=== PATIENT | male | born 1980 | race Caucasian/White ===

== ENCOUNTER → 2017-08-28 16:03 | Outpatient (CLI) | payer BC, SELFPAY ==
--- NOTE | 2017-08-28 16:10 | RAD_ITS ---
STUDY: X-RAY - LEFT SHOULDER REASON FOR EXAM: Male, 37 years old. Pain. TECHNIQUE: 4 view(s) of the shoulder. COMPARISON: None. FINDINGS: There is no evidence of fracture or dislocation. There are mild degenerative changes in the acromioclavicular joint. There are no radiodense foreign bodies. RAD/Shoulder min 2 Views IMPRESSION: No fracture or dislocation. Mild degenerative changes in the acromioclavicular joint. Electronically Signed: Charles Canales, at 20:56 EDT Tel , Service support ,
== END ==
PROVIDERS: Family Provider Family Medicine; PCP Family Medicine; Visit Provider Family Medicine
DX: M25.512 Pain in left shoulder (principal)
CPT/HCPCS: 73030

== ENCOUNTER → 2017-10-09 16:58 | Outpatient (CLI) | payer BC, SELFPAY | PROVIDERS: Family Provider Family Medicine; PCP Family Medicine; Visit Provider Family Medicine | DX: M25.512 Pain in left shoulder (principal); M75.102 Unspecified rotator cuff tear or rupture of left shoulder, not specified as traumatic | CPT/HCPCS: 73221 ==

== ENCOUNTER 2018-05-17 19:37 | Emergency (ER) | payer BC, SELFPAY ==
[2018-05-17 19:38] VITALS: BP 145/95; PULSE 83; PULSE 89; RESP 17; TEMP 36.4; O2SAT 96; BMI 27.1
[2018-05-17 20:03] VITALS: PULSE 87; RESP 16; TEMP 36.4; O2SAT 100
--- NOTE | 2018-05-17 20:47 | ED.DCSUM_ITS ---
- ER Visit Summary Date of Service: 05/17/18 Chief Complaint: Pain and swelling right long finger History of Present Illness: The patient is a 37 M who presents with pain and swelling to his right long finger that has been getting worse over the past couple days. Patient was started on Augmentin which has not been helping. Patient noted red streaking up his arm to his axilla. Patient denies any fevers or chills. Patient denies any discharge or drainage. Patient denies any paresthesias or weakness. Physical Examination: Vital signs are stable. Patient is afebrile. Patient is in no acute distress. Skin is warm and dry. There is tender erythematous area at the base of the nailbed of the right long finger. There is erythematous streaking to the axilla. There is no axillary lymphadenopathy noted. Heart was regular rate and rhythm. Lungs are clear and equal bilaterally. Sensation was intact to light touch in all digits. Capillary refill is less than 2 seconds in all digits. There is good range of motion. The remaining physical exam is within normal limits. Test Results: CBC and basic metabolic profile within normal limits. Emergency Department Course and Treatment: Patient was given a dose of Unasyn and vancomycin here. Patient was instructed to continue his Augmentin. Patient also has a prescription at the pharmacy for doxycycline. Patient will take this as prescribed. Patient was instructed to keep a close eye on the redness. Patient was instructed to return if worse in any way. Patient and spouse understood and were agreeable with the plan. All questions were answered. Disposition: Discharge home Impression: 1. Paronychia right middle finger 2. Lymphangitis This note was generated with [employer] dictation software. It may contain incorrect words, spelling, and punctuation that were not noted in review of the chart prior to signing ED Disposition - Plan for ED Patient: Disposition: Home or Assisted Living Diagnosis: Acute lymphangitis, Paronychia of right middle finger Instructions: ED Fingernail Infec, ED Lymphangitis Referrals: Brian Lindsay DO [Primary Care Provider] - 3-5 Days
[2018-05-17 21:09] LABS: Absolute Lymphocyte Count 1.57 X10^3/ul (0.83-4.51); Absolute Neutrophil Count 3.2 X10^3/uL (2.0-7.7); Basophil# 0.02 X10^3/uL; Basophil% 0.4 % (0-1); Eosinophil# 0.06 X10^3/uL; Eosinophils% 1.1 % (0-5); Hematocrit 38.8 % (40-54); Hemoglobin 13.7 g/dl (13.0-16.5); Lymphocyte # 1.57 X10^3/ul (4.0); Lymphocyte % 28.4 % (19-41); Mean Corp Hgb Conc 35.3 g/gl (32-36); Mean Corpuscular Hgb 28.9 pg (27.0-32.0); Mean Corpuscular Volume 81.9 fL (80-94); Mean Platelet Vol. 10.9 fl (6.2-12.0); Monocyte# 0.68 X10^3/uL; Monocyte% 12.3 % (0-10); Neutrophil # 3.18 X10^3/uL (2.7-7.7); Neutrophil % 57.6 % (47-70); Platelet Count 222 K/mm3 (150-450); RBC Distribution Width CV 12.6 % (11.6-14.6); Red Blood Count 4.74 M/mm3 (4.6-6.2); White Blood Count 5.5 K/mm3 (4.4-11.0)
[2018-05-17 21:22] LABS: POSITIVE COUNT NO; POSITIVE DIFFERENTIAL NO; POSITIVE MORPHOLOGY NO
[2018-05-17 21:26] LABS: Anion Gap 6 (5-15); BUN 20 mg/dL (7-18); BUN/Creat Ratio 17.4 RATIO (10-20); Calcium,Total 8.7 mg/dL (8.5-10.1); Chloride 109 mmol/L (98-107); Creatinine, Serum 1.15 mg/dL (0.70-1.30); EST Glomerular Filtration Rate 76 mL/min (>60); Est Glom Filt Rate - Afr Amer 92 mL/min (>60); Estimated Creatinine Clearance 93.67 ml/min; Glucose 119 mg/dL (74-106); Potassium 3.7 mmol/L (3.5-5.1); Sodium Level 143 mmol/L (136-145)
[2018-05-17] MEDS: Vancomycin IV 1,000 MG/200 ML BAG 200 MG IV (22:17)
[2018-05-17 23:29] VITALS: BP 138/76; PULSE 88; RESP 16; O2SAT 100
== END 2018-05-17 23:30 | disposition home or self-care (01) ==
PROVIDERS: Emergency Provider Emergency Medicine; Family Provider Family Medicine; PCP Family Medicine
DX: L03.011 Cellulitis of right finger (principal); I89.1 Lymphangitis
CPT/HCPCS: 80048; 85025; 87040; 96365; 96367; 99283; J7050; A4216; J0295

== ENCOUNTER → 2018-08-20 11:10 | Outpatient (CLI) | payer BC, SELFPAY ==
[2018-08-20 15:46] LABS: Absolute Lymphocyte Count 1.61 X10^3/uL (0.83-4.51); Absolute Neutrophil Count 2.7 X10^3/uL (2.0-7.7); Basophil# 0.03 X10^3/uL; Basophil% 0.6 % (0-1); Eosinophils% 2.1 % (0-5); Hemoglobin 15.3 g/dL (13.0-16.5); Lymphocyte # 1.61 X10^3/ul (4.0); Lymphocyte % 33.1 % (19-41); Mean Corp Hgb Conc 33.3 g/dL (32-36); Mean Corpuscular Hgb 28.5 pg (27.0-32.0); Mean Corpuscular Volume 85.8 fL (80-94); Mean Platelet Vol. 11.6 fl (6.2-12.0); Monocyte# 0.38 X10^3/uL; Monocyte% 7.8 % (0-10); NRBC Flagged by Analyzer 0 % (0-5); Neutrophil # 2.73 X10^3/uL (2.7-7.7); Neutrophil % 56.2 % (47-70); Platelet Count 240 K/mm3 (150-450); RBC Distribution Width CV 12.9 % (11.6-14.6); RBC Distribution Width SD 39.8 fl (35.1-43.9); Red Blood Count 5.36 M/mm3 (4.6-6.2); White Blood Count 4.9 K/mm3 (4.4-11.0)
[2018-08-20 15:59] LABS: ALB/GLOB Ratio 1.3 RATIO (0.9-2.4); AST(SGOT) 37 U/L (15-37); Alanine Aminotransfer ALT/SGPT 65 U/L (16-61); Albumin, Serum 4.4 g/dL (3.2-5.0); Alkaline Phosphatase 57 U/L (45-117); Anion Gap 6 (5-15); BUN 19 mg/dL (7-18); BUN/Creat Ratio 15.8 RATIO (10-20); Chloride 104 mmol/L (98-107); Cholesterol 194 mg/dL (200); EST Glomerular Filtration Rate 72 mL/min (>60); Est Glom Filt Rate - Afr Amer 87 mL/min (>60); Globulin 3.3 g/dL (2.2-4.2); Glucose 87 mg/dL (74-106); High Density Lipoprotein 62 mg/dL; Potassium 4.6 mmol/L (3.5-5.1); Protein, Total 7.7 g/dL (6.4-8.2); Sodium Level 140 mmol/L (136-145); Triglycerides 63 mg/dL; Very Low Density Lipoprotein 13 mg/dL (5-40)
[2018-08-20 16:06] LABS: Hemoglobin A1c 5.4 % (4.2-6.3)
== END ==
PROVIDERS: Family Provider Family Medicine; PCP Family Medicine; Visit Provider Family Medicine
DX: Z00.00 Encounter for general adult medical examination without abnormal findings (principal)
CPT/HCPCS: 36415; 80053; 80061; 83036; 85025

== ENCOUNTER 2020-10-22 11:00 | Outpatient (RCR) | payer OTHER, SELFPAY ==
--- NOTE | 2020-10-05 14:03 | HP.PTEVAL_ITS ---
Patient's Visit Information TATI QUINONEZ is a 40 year old M referred to Physical Therapy by Dr. Paul Miller DO with a diagnosis of NECK PAIN. Date of Evaluation: 10/05/20 Physical Therapist: Janna Peraza PT, Cert MDT - Visit Plan Frequency: 2-3x /Week Duration: 4-6 Weeks Plan: CERVICAL US, POSTURE CORRECTION/STRENGTHENING, INSTRUCTION IN APPROPRIATE BODY MECHANICS AND ACTIVITY MODIFICATIONS. BORA UE ROM, STRETCHING AND STRENGTHENING. HEP INSTRUCTION. CONSIDER: REP RET IN SITTING. REP RET IN LYING. SCAP SQUEEZES. DEEP NECK FLEXOR LIFT. PRONE W'S. UE WALL SLIDES. PRONE ROWS. UE TBAND WALL WALKS. ANTERIOR/MIDDLE SCALENE STRETCH. UPPER TRAP STRETCH. LEVATOR SCAPULAE STRETCH. 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 Disability: NO. Present symptoms: LEFT NECK, LEFT SHLD BLADE, SHLD AND TRICEP AREA PAIN. INTERMITTENT THROBBING IN TRICEP AND FOREARM DRIVING. NO NUMBNESS OR TINGLING. SUDDEN WEAKNESS IN LEFT UE WITH PULL UPS, BENCH PRESS, TRICPS AND OTHER SHLD EX'S. Present since: ABOUT ONE MONTH AGO. Pain Scale: Worst - 5/10 Least - 1/10. Currently: 02/14. Commenced as a result of: NO APPARENT REASON. Symptoms at onset: WOKE UP WITH PAIN AND SORENESS IN LEFT UPPER TRAP REGION. Worse: DRIVING, THE DAY PROGRESSES, PICKING UP DAUGHTER. Better: ICE, IBUPROFEN. Disturbed sleep: YES. 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 NO NECK OR SHLD SURGERY. CORTISONE SHOT L SHLD A COUPLE YEARS AGO. NO CHIROPRACTOR. NO PHYSICAL THERAPY ON NECK OR SHLD. 2018 L SHLD MRI - ARTHRITIS SHOWN PER PATIENT REPORT. This episode: ONE VISIT WITH DR. MILLER. NO MEDICATION ORDERED. PT CONSULT. Dizziness: NO. Tinnitis: NO. Nausea: NO. Shortness of Breath: NO. Difficulty Swollowing: NO. Gait: NORMAL. Accidents: NO. Unexplained weight loss: NO. Imaging: CERVICAL X-RAY - C67 PINCHED NERVE PER PATIENT REPORT. [facility] EMR: NTERVERTEBRAL DISCS: Mild degenerative endplate changes with small. osteophytes at C4-5, C5-6, and C6-7. Mild intervertebral disc space. narrowing at C6-7. PMH/Recent major surgery: UNREMARKABLE. VERTIGO. PLOF (Prior Level of Function): UNLIMITED - Objective Sitting Posture/Standing Posture: FAIR. MILD FH. RS'S. Active Correction of posture: TAKES A LITTLE TENSION OFF OF THE L UE. Other Observations: INDEP GAIT AND TRANSFERS. 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 BORA UE'S 5/5 WITH MMT'ING BUT PATIENT REPORTS BEING UNABLE TO LIFT WEIGHTS WITH L UE DUE TO WEAKNESS. Sensory deficit: BORA UE LIGHT TOUCH SENSATION APPEARS INTACT AND SYMMETRICAL INCLUDING SHLD BLADE REGIONS. ROM deficit: BORA UE'S WFL. Reflexes: 2/3 BORA UE'S. Dural Signs: POSITIVE L UE. Cervical Mvmt Loss: Flex: MIN. Pro: NIL. Ext: MOD. Ret: MOD. RSB: MIN. LSB: MIN. R Rot: MOD. L Rot: MOD. CERVICAL ROM TESTING ALL PLANES INCREASES C/O OF LEFT UPPER TRAP REGION AND SHLD PAIN ESPECIALLY EXTENSION, RETRACTION. Postural strength: POOR. Palpation: NO ACUTE CERVICAL TENDERNESS WITH PALPATION TODAY. TREATMENT: NEUROMUSCULAR REEDUCATION - RETRAINING OF MVMT AND POSTURE FOR SITTING, LYING AND STANDING ACTIVITIES. - Balance/Special Test Scores Oswestry Neck Score: 15 - Goals Goal 1:: DECREASE C/O LEFT UPPER TRAP AND UE SX'S. Goal Time Frame: 4-6 Weeks Goal 2:: IMPROVE LIFTING, DRIVING, SLEEP AND RECREATIONAL FUNCTION Goal Time Frame: 4-6 Weeks Goal 3:: INSTRUCT IN PROPHYLAXIS Goal Time Frame: 4-6 Weeks - Anticipated Interventions Patient/Client Instruction: Educate patient on: Condition, Plan of Care, Risk Factors For the Purpose of:: To improve self management Therapeutic Exercise to Include: Strength training, Body mechanics, Postural training, Flexibilty training, Neuromotor development, Scapular Strength/Stabilization Comment: POOL IS NOT COVERED For the Purpose of:: To decrease pain, To increase ROM, To improve muscle performance and motor function, To increase tolerance to activity/condition/position, To improve ability of physical actions for home/community/work/leisure Thank you for the opportunity to evaluate your patient. For Medicare and Medicare HMO plans, please review the plan of care and approve it. It will need to be FAXED BACK to us at [phone] for Medicare purposes. For Medicare only, by signing this I certify the plan of care. Please let me know if there are questions or concerns regarding this plan of care. Physician Signature: Date:
--- NOTE | 2020-10-22 12:23 | HP.PTREVAL_ITS ---
Dr. Paul Miller, DO, It has been my pleasure to treat TATI QUINONEZ over the last 7 visits for NECK PAIN. Please see the progress note below for an update on the physical therapy plan of care! Subjective: PATIENT REPORT HE ISN'T HAVING MUCH PAIN OVER-ALL. STATES HE ISN'T HAVING MUCH PAIN IN HIS SHLD OR SHLD BLADE BUT FEELS IT IN HIS LAT. MRI PENDING 10/25/20. NOT REGAINING THE FUNCTION OF HIS ARM. PATIENT REPORTS THAT MOST OF THE PAIN IS GONE AND HE IS SLEEPING BETTER BUT HE CAN'T WORKOUT WITH HIS L ARM LIKE BEFORE THE ONSET OF THIS EPISODE. Objective/Function: PATIENT WAS SEEN TODAY FOR MODALITIES AND RE-ASSESSMENT OF PROGRESS TOWARD THE SET PT GOALS AND THE NEED FOR FURTHER PHYSICAL THERAPY VS READINESS FOR DISCHARGE. PAIN AND SLEEPING HAVE IMPROVED BUT SX'S HAVE PROGRESSED TO THE L HAND AND THERE IS SIGNIFICANT L UE DYSFUNCTION. UPON EXAM TODAY THERE IS SHRINKAGE OF THE LEFT UE MUSCULATURE COMPARE TO THE RIGHT. HE IS STRONG WITH MMT'ING BUT CAN ONLY LIFT ABOUT 10 LBS WITH SOME L UE EX'S. TRICEP AND CHEST WEAKNESS MOST OBVIOUS. Motor deficit: Sensory deficit: BORA UE LIGHT TOUCH SENSATION APPEARS INTACT AND SYMMETRICAL INCLUDING SHLD BLADE REGIONS AND LEFT HAND TODAY BUT HE REPORTS SOME TINGLING IN L HAND. ROM deficit: BORA UE'S WFL BUT SOME DIFFICULTY STRAIGHTENING L ELBOW TODAY. Reflexes: 2/3 BORA UE'S. Dural Signs: POSITIVE L UE. Cervical Mvmt Loss: Flex: NIL. Pro: NIL. Ext: MOD - BUT PATIENT REPORTS FEELING BETTER ROM NOW THAN WHEN HE STARTED PT. Ret: MIN. RSB: MIN. LSB: MIN. R Rot: MIN. L Rot: MIN. PATIENT DENIES INCREASED PAIN WITH CERVICAL ROM TESTING TODAY. Plan Plan: HOLD PT PENDING MRI AND RESULTS. PATIENT TO CONTINUE HOME PROGRAM TOLERATED. PATIENT AGREEABLE. CERVICAL US, POSTURE CORRECTION/STRENGTHENING, INSTRUCTION IN APPROPRIATE BODY MECHANICS AND ACTIVITY MODIFICATIONS. BORA UE ROM, STRETCHING AND STRENGTHENING. HEP INSTRUCTION - CONSIDER: REP RET IN SITTING. REP RET IN LYING. SCAP SQUEEZES. DEEP NECK FLEXOR LIFT. PRONE W'S. UE WALL SLIDES. PRONE ROWS. UE TBAND WALL WALKS. ANTERIOR/MIDDLE SCALENE STRETCH. UPPER TRAP STRETCH. LEVATOR SCAPULAE STRETCH. CHEST/PEC MAJOR AND MINOR STRETCH Balance/Gait/Functional tests - Balance/Special Test Scores Oswestry Neck Score: 15 Goals Goal 1:: DECREASE C/O LEFT UPPER TRAP AND UE SX'S. Goal Time Frame: 4-6 Weeks Goal Progress: Progressing Goal 2:: IMPROVE LIFTING, DRIVING, SLEEP AND RECREATIONAL FUNCTION Goal Time Frame: 4-6 Weeks Goal Progress: Progressing Goal 3:: INSTRUCT IN PROPHYLAXIS Goal Time Frame: 4-6 Weeks Goal Progress: Progressing Anticipated Interventions Patient/Client Instruction: Educate patient on: Condition, Plan of Care, Risk Factors For the Purpose of:: To improve self management Therapeutic Exercise to Include: Strength training, Body mechanics, Postural training, Flexibilty training, Neuromotor development, Scapular Stre ngth/Stabilization Comment: POOL IS NOT COVERED For the Purpose of:: To decrease pain, To increase ROM, To improve muscle performance and motor function, To increase tolerance to activity/condition/position, To improve ability of physical actions for home/community/work/leisure Please do not hesitate to contact me at [phone] by phone or Fax: if you have questions or concerns regarding this new plan of care! Sincerely, Janna Peraza, PT, Cert MDT
--- NOTE | 2020-12-22 12:40 | HP.PTDCNRP_ITS ---
TATI QUINONEZ was seen in my office for initial evaluation on 10/05/20. The following Plan of Care was established for this patient: Initial Frequency: 2-3x /Week Initial Duration: 4-6 Weeks Patient/Client Instruction: Educate patient on: Condition, Plan of Care, Risk Factors For the Purpose of:: To improve self management Therapeutic Exercise to Include: Strength training, Body mechanics, Postural training, Flexibilty training, Neuromotor development, Scapular Strength/Stabilization For the Purpose of:: To decrease pain, To increase ROM, To improve muscle performance and motor function, To increase tolerance to activity/c ondition/position, To improve ability of physical actions for home/community/work/leisure This patient was last seen in our office 10/22/20. Pertinent comments regarding their Physical therapy will appear below: This patient has not returned to Physical Therapy and is appropriate to return to MD for further follow-up as needed. At this point I will be discontinuing this patient from physical therapy. I would be happy to see this patient again in the future if found appropriate by the physician. Thank you! Janna Peraza, PT, Cert MDT Balance/Gait/Functional tests - Balance/Special Test Scores Oswestry Neck Score: 11
== END 2020-10-22 19:00 | disposition home or self-care (01) ==
LOC: PT 11:00
PROVIDERS: PCP Family Medicine; Referring Provider Orthopaedic Surgery; Visit Provider Orthopaedic Surgery
DX: M50.30 Other cervical disc degeneration, unspecified cervical region (principal)
CPT/HCPCS: 97014; 97035; 97110; 97112; 97162; 97164; 97530; G0283

== ENCOUNTER → 2020-10-25 07:55 | Outpatient (CLI) | payer OTHER, SELFPAY ==
--- NOTE | 2020-10-25 07:57 | MRI_ITS ---
HISTORY: pain in back, left arm, shoulder, NKI. TECHNIQUE: Routine MRI of the cervical spine was performed. # of images incl. paperwork: 264. IV Contrast dosage and agent: None. COMPARISON: XR 09/30/2020. FINDINGS: VERTEBRAE: Vertebral body heights maintained. Mild degenerative endplate bone marrow changes, particularly C6-7. Small hemangioma or focal fat in the T1 vertebral body. ALIGNMENT: Straightening of the cervical lordosis without significant anterior or posterior subluxation. CORD: Morphology and signal within normal limits. SOFT TISSUES: No prevertebral fluid collection. INTERVERTEBRAL DISCS: C2-3: No significant posterior disc protrusion, central canal stenosis, or foraminal narrowing. C3-4, C4-5: Mild posterior disc bulge osteophyte complexes eccentric to the left abutting the left ventral cord with uncovertebral and facet arthropathy resulting in mild central canal stenosis and moderate-severe left foraminal narrowing. C5-6: Mild posterior disc protrusion eccentric to the left with small annular fissure. Uncovertebral and facet arthropathy. Very mild central canal stenosis and moderate left foraminal narrowing. C6-7: Mild posterior disc bulge osteophyte complex with uncovertebral and facet arthropathy resulting in minimal narrowing of the thecal sac and mild bilateral foraminal narrowing. C7-T1: No significant posterior disc protrusion, central canal stenosis, or foraminal narrowing. MRI/Spine Cervical (Routine) IMPRESSION: Multilevel degenerative disc disease as described above. at 1033 Reported and signed by: Margot Heredia MD Electronically Signed: Margot Heredia MD at 10:32 EDT Tel , Service support ,
== END ==
PROVIDERS: PCP Family Medicine; Referring Provider Orthopaedic Surgery; Visit Provider Orthopaedic Surgery
DX: M50.30 Other cervical disc degeneration, unspecified cervical region (principal)
CPT/HCPCS: 72141

== ENCOUNTER 2020-12-17 10:46 | Observation (INO) | payer OTHER, SELFPAY ==
--- NOTE | 2020-12-09 14:03 | EKG12_ITS ---
Test Reason : PREOP Blood Pressure : / mmHG Vent. Rate : 077 BPM Atrial Rate : 077 BPM P-R Int : 146 ms QRS Dur : 086 ms QT Int : 360 ms P-R-T Axes : 077 068 014 degrees QTc Int : 407 ms Normal sinus rhythm Normal ECG Confirmed by JENNIFER KING, JAN ([id number]), general expeditor ALYCE WICK ([id number]) on 12/13/2020 10:10:42 A M Referred By: CHARU VICENTE Confirmed By:MELVIN RODRIGUEZ MD
[2020-12-09 14:43] LABS: Absolute Lymphocyte Count 1.59 X10^3/uL (0.83-4.51); Absolute Neutrophil Count 6.9 X10^3/uL (2.0-7.7); Basophil# 0.04 X10^3/uL; Basophil% 0.4 % (0-1); Eosinophil# 0.09 X10^3/uL; Hematocrit 48.3 % (40-54); Hemoglobin 15.9 g/dL (13.0-16.5); Lymphocyte # 1.59 X10^3/ul (0.83-4.51); Lymphocyte % 16.9 % (19-41); Mean Corp Hgb Conc 32.9 g/dL (32-36); Mean Corpuscular Hgb 26.8 pg (27.0-32.0); Mean Corpuscular Volume 81.5 fL (80-94); Mean Platelet Vol. 11.5 fl (6.2-12.0); Monocyte# 0.78 X10^3/uL; Monocyte% 8.3 % (0-10); NRBC Flagged by Analyzer 0 % (0-5); Neutrophil # 6.88 X10^3/uL (2.7-7.7); Neutrophil % 73.1 % (47-70); Platelet Count 311 K/mm3 (150-450); RBC Distribution Width CV 13.4 % (11.6-14.6); RBC Distribution Width SD 39.4 fl (35.1-43.9); Red Blood Count 5.93 M/mm3 (4.6-6.2); White Blood Count 9.4 K/mm3 (4.4-11.0)
[2020-12-09 15:01] LABS: Anion Gap 8 (5-15); BUN 17 mg/dL (7-18); BUN/Creat Ratio 14.9 RATIO (10-20); Calcium,Total 8.9 mg/dL (8.5-10.1); Chloride 101 mmol/L (98-107); Creatinine, Serum 1.14 mg/dL (0.70-1.30); EST Glomerular Filtration Rate 75 mL/min (>60); Est Glom Filt Rate - Afr Amer 91 mL/min (>60); Glucose 87 mg/dL (74-106); Potassium 4.1 mmol/L (3.5-5.1); Sodium Level 137 mmol/L (136-145)
[2020-12-09 15:46] LABS: HIV - WCH Non-Reactive (Nonreactive); Hepatitis B Surface Antibody Reactive; Hepatitis C Antibody Non-Reactive (Nonreactive)
[2020-12-11 08:39] LABS: Hepatitis A AB, Total Negative (Negative)
--- NOTE | 2020-12-16 13:20 | HP.PCM_ITS ---
History and Physical Date of Admission: 12/17/20 [facility] [id number] [phone] OFFICE VISITDate of Service: 11/03/20 MR#:[id number]:[id number]: TATI QUINONEZ [facility] #:[id number]:[id number] Provider:Dr. Daniel Talamantes, Age/Sex: 40/M Location:[place]:Signed Intake Vital Signs 11/03/20 08:42 Height 5 ft 8 in Intake Visit Reasons: cervical Chief Complaint: Cervical Spine Is patient in pain?: Yes Pain scale (1-10): 1 Allergies No Known Allergies Allergy (Verified 11/03/20 08:43) Medications ibuprofen 200 mg tablet 200 mg PO Q6H PRN 09/30/20 [History Confirmed 11/03/20] PFSH Medical History (Updated 11/03/20 @ 10:[address] Daniel Talamantes DO) Seasonal allergies Family History Father Hypertension Social History Smoking Status: Former smoker alcohol intake: never what type of physical activity do you participate in: running, yoga, aerobics and weight training frequency: 3-4 times per week HPI cervical Details: Parts of this documentation were recorded by a scribe, this documentation accurately reflects the service provided and the decisions made by me, Dr. Daniel Talamantes DO 11/03/20 0842. TATI QUINONEZ is a 40 year old M here today for his cervical spine. Patient was seen by Dr. Miller on 09/30/20 for left shoulder pain that radiated down his left arm with numbness and tingling. The pain was a sudden onset and the patient denies any inury, Patient was referred to physical therapy and this worsened his pain. A Cervical MRI was done on 10/25/20. Patient states that the pain is now radiating from his neck into his left triceps and pectoralis muscles. He has numbness and tingling radiating to his left hand. The pain is causing him limited range of motion in his left shoulder and arm. Patient has tried the following conservative treatments for six weeks or greater: [RICE, OTC NSAIDs, home exercises provided by a provider, PT/OT, (splinting, casting, bracing, sling), interventional pain procedures, pain management techniques, and spinal manipulation]. Patient has found no relief and would like to further investigate their s/s. Tati is most pleasant 40-year-old young man who is here for pain in the left side of his neck that radiates down the left shoulder and into the triceps sometimes all the way down to the hand. This has been going on now for approximately 5 to 6 weeks. It was insidious in onset. He works out a lot and lifts a lot of weights. He states when the pain is usually a a 5 on a scale of 0-10. It is very uncomfortable however. It started rather suddenly without any specific injury. Overall it is not getting better at this time. On examination he has some wasting of the triceps on the left and weakness of the triceps on the left. I can easily overcome his left triceps. This is a man who works out with weights on a regular basis. He is very well-developed overall. His right triceps strength is superior. All the rest of the muscle groups are normal in strength. He has a barely perceptible triceps reflex on the left but only a 1+ on the right. Brachioradialis and biceps reflexes are 2+ and equal bilaterally. Spurling's maneuver to the left side is equivocal. That alone is a bit bothersome. He has no long tract signs. Clonus is absent Babinski's are downgoing. Plain x-rays were relatively unremarkable. He does have a bit of decreased space at C6-7. MRI demonstrates hard disc disease at C6-7 particularly on the left. Is hard to tell if there is any superimposed herniated disc or not. Impression: #1 left C7 radiculopathy secondary to foraminal stenosis C6-7 #2 rule out Parsonage-Richardson syndrome PTS is an immune mediated condition that affects the brachial plexus. It is rare. Only about 2 people per 100,000 are affected. Most of these are male. It would behoove us prior to any surgical intervention to do an EMG nerve conduction studies and try to differentiate between the 2. I will see him after the EMG nerve conduction study. 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
[2020-12-17] VITALS (10 sets, daily range): BP systolic 103–170; BP diastolic 78–97; PULSE 81–99; RESP 15–20; TEMP 36.5–36.9; O2SAT 95–98; BMI 32.1
--- NOTE | 2020-12-17 | DISC_PTH ---
PATIENT: TATI QUINONEZ LOC: MS2 U#:[id number] AGE/SX: 40/M ROOM: [facility] [place]12/17/[address]: Dr. Daniel Talamantes DO : 1980 BED: 1 DIS: 12/18/2020 SPEC #: [id number] RECD: 12/17/20 15:57 STATUS: KILO RANDA #: [id number] KASHIF: 12/17/20 00:[address]: Daniel Talamantes DEPT: SURGICAL PATHOLOGY RECD BY: Timmy Deluna ENTERED: 12/20/20 08:59 SP TYPE: DISC OTHR DR: Dr. Brian Lindsay DO Tissues: Intervertebral disc, NOS Procedures: Surgery Specimen Level III HEADER OPERATION: ERAS, anterior cervical discectomy and interbody fusion C6-7 PRE-OP DIAGNOSIS: Degenerative disc disease, cervical; C7 radiculopathy TISSUE SUBMITTED: Cervical disc C6-7 MICROSCOPIC DIAGNOSIS Intervertebral disc, C6-7, discectomy: Fragments of intervertebral disc with degenerative change. AM:[email or web address] 12/21/2020 MICROSCOPIC DESCRIPTION Slides are reviewed. GROSS DESCRIPTION Received in fixative is one container labeled with the patient's name and designated cervical disc C6-7. The specimen consists of multiple pieces of [place]-white to light brown, indurated tissue that in aggregate measure 3 x 2.5 x 0.5 cm. [employer] tissue is submitted in one cassette. / SJ:[email or web address] 12/20/20 TC:5 CPT: 31716
[2020-12-17] MEDS: Acetaminophen 500 MG Tablet 1000 MG PO ×2 (06:27→17:43)
[2020-12-17] MEDS: dexAMETHasone 10 MG/ML Vial 8 MG IV (06:27)
[2020-12-17] MEDS: Lactated Ringers 1,000 ML 100 ML IV ×2 (06:30→13:13)
[2020-12-17] MEDS: Cefazolin 2 GM in 0.9% Normal Saline 100 ML IV (07:13)
--- NOTE | 2020-12-17 07:30 | RAD_ITS ---
STUDY: X-RAY - CERVICAL SPINE REASON FOR EXAM: Male, 40 years old. ERAS, ANTERIOR DISCECTOMY, INTERBODY FUSION C6-7 -- IMAGE 2 TECHNIQUE: 1 view(s) of the cervical spine were obtained. COMPARISON: None FINDINGS: The localization instrument is at the C6-C7 level anteriorly RAD/Spine 1 View Any Level IMPRESSION: The localization instrument is at the anterior aspect of the C6-C7 level. Electronically Signed: Contreras Wu MD at 10:13 EST , Service support ,
--- NOTE | 2020-12-17 08:05 | RAD_ITS ---
STUDY: X-RAY - CERVICAL SPINE REASON FOR EXAM: Male, 40 years old. INTERBODY FUSION C6-7, DISCECTOMY, LEFT TECHNIQUE: 1 view(s) of the cervical spine were obtained. COMPARISON: None FINDINGS: The localization instrument is seen along the anterior aspect of the C5-C6 disc space level. RAD/Spine 1 View Any Level IMPRESSION: The localization instrument is at the C5-C6 level. Electronically Signed: Contreras Wu MD at 10:12 EST , Service support ,
[2020-12-17] MEDS: Heparin 10,000 UNITS/10 ML Vial 10000 UNITS (09:06)
[2020-12-17] MEDS: THROMBIN (RECOMBINANT) 20,000 UNIT VIAL 20000 UNIT TOPICAL (09:06)
[2020-12-17 09:21] LABS: Bedside Glucose 140 mg/dL (70-110)
--- NOTE | 2020-12-17 10:05 | RAD_ITS ---
STUDY: X-RAY - CERVICAL SPINE REASON FOR EXAM: Male, 40 years old. FUSION, C6-7 -- IMAGE 3 TECHNIQUE: 1 view(s) of the cervical spine were obtained. COMPARISON: None FINDINGS: The patient is status post anterior fusion and disc placement at the C6-C7 level. RAD/Spine 1 View Any Level IMPRESSION: Status post anterior fusion with disc placement at the C6-C7 level. Electronically Signed: Contreras Wu MD at 13:22 EST , Service support ,
--- NOTE | 2020-12-17 11:00 | PCM.OPRPT ---
Report of Operation Date of Procedure: 12/17/20 Description of Surgical Findings:: Preoperative diagnosis: Left C7 radiculopathy secondary to foraminal stenosis C6-7 Postoperative diagnosis: The same Procedures: #1 anterior cervical fusion C6-7 CPT code 13700 #2 application of titanium spine plate C6-7 CPT code 16788/59 #3 insertion of titanium cage C6-7 CPT code 86500 Surgeon: Dr. Talamantes digital marketing assistant: Kesha GRIER Anesthesia: General endotracheal anesthesia administered by [facility] Estimated blood loss: Less than 20 cc Drains: 1/4 inch Mary Complications: None Procedure: Patient was taken to the OR where he was placed in the supine position on the operating table. He was then placed under general endotracheal anesthesia. A Mirza catheter was inserted. Neuro monitoring placed their leads in the patient. Shoulder roll was placed under the top of the shoulders to gently extend his neck. The neck and the right iliac crest were then prepped and draped in standard fashion. First we obtained the BMA from the right iliac crest through a small puncture incision a Jamshidi needle was inserted tamped into place and 60 cc of bone marrow aspirate were obtained. This was handed off to the supply technician in the room. She then spun the blood and the stem cells from the rest of the cells and concentrated them 8-10 times. These were then given back to us. Note that prior to surgery I had marked the skin with a small laceration in the center after first taking a preoperative x-ray with a marker in place. Now that it was prepped and draped we started the incision at that point incurvate to the right along longer's lines to the edge of the right sternocleidomastoid muscle then developed a flash of fascial planes taken strap muscles to the medial side. I then opened the superficial cervical fascia followed by opening of the pretracheal fascia. I kept the carotid pulse to the right side along with sternocleidomastoid and the strap muscles along with the trachea and esophagus were retracted to the left. This gave me access to the precervical fascia. I can feel small lips anteriorly which was seen on the MRI scan and I felt this was probably C6-7 thus I open the anterior cervical fascia and identified the C6-7 disc. An intraoperative x-ray was taken with a marker in place to confirm that it was indeed C6-7 which it was. The emergency room physician assistant then pulling first to the left I cauterized the edge of the left longus coli muscles elevated them gently off the space. This was also done on the right side. In this fashion I was able to put the appropriate length black top spreader machine operator retractors under the coli and asked and give gave me access to the anterior space we also put it up and down traction with smooth blades to give us good access to both vertebral bodies and the disc space. Thorough irrigation was carried out. I then cut the anterior annulus with a 15 blade remove this and removed more nucleus from within the disc base. Using double-action rongeurs I remove the anterior osteophytes. The emerald bur to bur them smooth both the bottom of C6 and the top of C7. Then put the intervertebral body distractor in place on the right side. I then removed more nucleus from within the disc space and the cartilage off both endplates with small angled curettes. This was taken all the way back to the posterior aspect of the uncinate process. Using the emerald bur and a technique whereby we would bur followed by the instillation of cold saline to prevent damage to the nerve or bone. It was done repeatedly until the uncinate process was a very thin shell directly overlying the base of the nerve root. I then remove this with small curettes then using nerve hooks were able to checked the foramen which at this point was now quite open. Again thorough irrigation was carried out. Remaining cartilage was removed off both endplates all the way across. We then took her measurements for the cage. We decided to use a large size cage which was 14 x 16-1/2 8 mm high. We use the trials to determine what size. I then used a broach to broach the endplates to make them bleed on either side. We then filled the 8 mm cage with demineralized bone matrix that was processed to be a sponge. We then soaked in the patient's concentrated stem cells and tamped it into place and countersunk it 2 or 3 mm. We then used a 28 mm spider plate once centered we placed a locking pin in place followed by the use of the awl to punch holes in injury with 16mm screws to warrant to see 7 and 2 and were into C6. We screwed them down through the locking mechanisms. The construct was then seen on the lateral projection on plain x-ray was found to be quite satisfactory with good position of the screws the plate and the cage. Following this we placed a amniotic membrane directly over the plate to prevent its adhesions to the trachea or esophagus. A 1/4 inch Covel drain was inserted and we begin closure I reapproximated the platysma running fashion with 5-0 Vicryl for closure of subcutaneous tissues with 5-0 Vicryl in interrupted fashion. The skin was approximated using a running subcuticular stitch with 5-0 nylon. Sterile dressings were then applied and a safety pin was placed through the drain to prevent a suction into the wound. He was then recovered in the OR he was moved to his hospital bed and taken to recovery in satisfactory condition. And of operative summary on Rory Keyes. This is Dr. Talamantes dictating.
--- NOTE | 2020-12-17 13:05 | PCS.PANDOC ---
PANDEMIC DOCUMENTATION INITIATED: Date: 09/20/2020 Time: 190
[2020-12-17] MEDS: dexAMETHasone 4 MG/ML Vial IV ×2 (13:10→17:08)
[2020-12-17] MEDS: Cefazolin 1 GM/50 ML BAG IV ×2 (15:17→23:15)
[2020-12-17] MEDS: oxyCODONE 5 MG Tablet PO (17:43)
[2020-12-17] MEDS: Senna/Docusate Sodium 1 Tablet 2 TABLET PO (20:59)
[2020-12-17] MEDS: dexAMETHasone 4 MG/ML Vial 2 MG IV (23:15)
[2020-12-18] MEDS: Lactated Ringers 1,000 ML 100 ML IV (00:29)
[2020-12-18] MEDS: Acetaminophen 500 MG Tablet 1000 MG PO ×2 (00:34→08:48)
[2020-12-18 04:25] VITALS: BP 108/63; PULSE 88; RESP 15; TEMP 36.8; O2SAT 96
[2020-12-18] MEDS: dexAMETHasone 4 MG/ML Vial 2 MG IV (06:37)
[2020-12-18 08:44] VITALS: BP 137/87; PULSE 84; RESP 18; TEMP 36.5; O2SAT 99
[2020-12-18] MEDS: Cholecalciferol (VIT D3) 25 MCG TABLET (1,000 UNITS) 125 MCG PO (08:46)
[2020-12-18] MEDS: Ascorbic Acid 500 MG Tablet 1000 MG PO (08:46)
[2020-12-18] MEDS: Multivitamins,Therapeutic Tablet 1 TABLET PO (08:47)
[2020-12-18] MEDS: Senna/Docusate Sodium 1 Tablet 2 TABLET PO (08:47)
[2020-12-18] MEDS: Sertraline 50 MG Tablet PO (08:47)
--- NOTE | 2020-12-18 10:04 | CASEMGMT ---
CAROL CIFUENTES Assessment: Face to Face with pt for initial transition planning/care coordination assessment. RN ESAU introduced self and role at [facility], pt voices understanding and consents to assessment. Pt is A/O x4 and answers all questions appropriately at this time. Pt sitting up in chair in no distress. Care providers, pharmacy, and demographics verified/updated. Admitting Dx: anterior cervical discectomy PCP:Angélica Specialists:Albin, spine surgeon [facility]erred [facility]acy: [facility] Insurance: [employer] Prescription Benefit: yes LW/HPOA: Pt denies having a LW/DPOA and denies need for info regarding AD. LNOK: Dasha Valadez, Living Arrangements: Pt lives with and daughter in a single story house with a few steps to enter without a rail. Pt reports he is I in ADL's and denies concerns at home. Transportation: Pt drives self and denies concerns with transportation. DME/HHC/SNF: Pt has a walker at home but does not use. Pt denies hx of HHC or SNF stays. Pt states no concerns with going home at time of dc. Pt states no further concerns/needs. CM to follow. Advised pt to ask CM if any further question/concerns/needs arise, voices understanding. Pt Goal: Home Plan: Home
--- NOTE | 2020-12-18 11:34 | PCM.DC ---
Discharge Instructions Follow Up Care Test Results: Test results from this visit will be discussed in further detail at your follow-up appointment, if applicable. Discharge Plan Admission Admit Date/Time: 12/17/20 10:46 Attending Provider: Daniel Talamantes Primary Care Provider: Brian Lindsay Discharge Orders/Prescriptions Prescriptions: No Action sertraline 50 mg tablet 50 mg PO DAILY RF: 0 multivitamin Tablet 1 tab PO DAILY RF: 0 magnesium 100 mg Capsule 100 mg PO DAILY RF: 0 zinc 50 mg Tablet 50 mg PO DAILY RF: 0 Vitamin C 1,000 mg Capsule, Extended Release 1 cap PO DAILY RF: 0 cholecalciferol (vitamin D3) [Vitamin D3] 125 mcg (5,000 unit) Tablet 125 mcg PO DAILY RF: 0 omega 8-ytu-dns-fish oil [Fish Oil] 1,000 mg (120 mg-180 mg) Capsule 1 cap PO DAILY RF: 0 Spirulina Powder 1 ea MISCELLANEOUS DAILY RF: 0 Referrals / Follow Up: Daniel Talamantes DO [STAFF PHYSICIAN] - Brian Lindsay DO [Primary Care Provider] - Disposition Disposition (needs filled in before D/C Order can be placed): Home, Self Care
--- NOTE | 2020-12-18 11:37 | PCM.DC.SUM ---
Providers Date of Admission: 12/17/20 Primary Care Physician: Dr. Brian Lindsay DO Reason For Visit: ANTERIOR CERVICAL DISCECTOMY Medications at Discharge Home Medications ascorbic acid (vitamin C) [Vitamin C] 1 cap PO DAILY 12/03/20 blue-green algae (bulk) [Spirulina] 1 ea MISCELLANEOUS DAILY 12/03/20 cholecalciferol (vitamin D3) [Vitamin D3] 125 mcg PO DAILY 12/03/20 magnesium 100 mg PO DAILY 12/03/20 multivitamin 1 tab PO DAILY 12/03/20 omega 1-daj-azk-fish oil [Fish Oil] 1 cap PO DAILY 12/03/20 zinc 50 mg PO DAILY 12/03/20 sertraline 50 mg tablet 50 mg PO DAILY tab 12/10/20 Weight / BMI Weight Weight: 230 lb 9.656 oz Body Mass Index (BMI) 32.1 ABG / Lab / Microbiology Data Result Diagrams: 12/09/20 13:51 12/09/20 13:51 Microbiology: Microbiology 12/09/20 13:51 Swab (Method) Nasal Screen MRSA/MSSA - Final Radiography Diagnostic Testing: Radiology Impression Spine X-Ray 12/17/20 10:05 IMPRESSION: Status post anterior fusion with disc placement at the C6-C7 level. Electronically Signed: Contreras Wu MD at 13:22 EST , Service support , D/C Instructions Discharge Diet: No restrictions Discharge Activity: May Not Drive May shower in (days): 4 May resume sexual activity in: 10-14 days Weight Bearing Status: Full weight bearing Lifting Restricted to (Lbs): 25 Remove Dressing in: 3 days Cleanse incision/area with: Soap & Water Please Follow Up With: Daniel Talamantes DO When: 6 days Meaningful Use Info Meaningful Use Diagnoses (Choose all that apply): None applicable Discharge Plan Admission Admit Date/Time: 12/17/20 10:46 Attending Provider: Daniel Talamantes Primary Care Provider: Brian Lindsay Discharge Orders/Prescriptions Prescriptions: No Action sertraline 50 mg tablet 50 mg PO DAILY RF: 0 multivitamin Tablet 1 tab PO DAILY RF: 0 magnesium 100 mg Capsule 100 mg PO DAILY RF: 0 zinc 50 mg Tablet 50 mg PO DAILY RF: 0 Vitamin C 1,000 mg Capsule, Extended Release 1 cap PO DAILY RF: 0 cholecalciferol (vitamin D3) [Vitamin D3] 125 mcg (5,000 unit) Tablet 125 mcg PO DAILY RF: 0 omega 5-wdp-nfu-fish oil [Fish Oil] 1,000 mg (120 mg-180 mg) Capsule 1 cap PO DAILY RF: 0 Spirulina Powder 1 ea MISCELLANEOUS DAILY RF: 0 Referrals / Follow Up: Daniel Talamantes DO [STAFF PHYSICIAN] - Brian Lindsay DO [Primary Care Provider] - Disposition Disposition (needs filled in before D/C Order can be placed): Home, Self Care
[2020-12-18 11:49] VITALS: BP 157/75; PULSE 75; RESP 18; TEMP 36.8; O2SAT 97
== END 2020-12-18 12:10 | disposition home or self-care (01) ==
LOC: SDC 11:24 → MS2 11:27
PROVIDERS: Anesthesiology; Admitting Provider Orthopaedic Surgery; PCP Family Medicine; Referring Provider Orthopaedic Surgery; Visit Provider Orthopaedic Surgery
PROC: (CPT 22551; principal; 2020-12-17 07:00)
DX: M50.123 Cervical disc disorder at C6-C7 level with radiculopathy (principal); M48.02 Spinal stenosis, cervical region; M99.02 Segmental and somatic dysfunction of thoracic region; M99.03 Segmental and somatic dysfunction of lumbar region; M99.05 Segmental and somatic dysfunction of pelvic region; M19.90 Unspecified osteoarthritis, unspecified site; K21.9 Gastro-esophageal reflux disease without esophagitis; Z87.891 Personal history of nicotine dependence; Z79.899 Other long term (current) drug therapy
CPT/HCPCS: 00670; 20931; 20938; 22551; 22845; 22853; 36415; 72020; 80048; 82962; 83735; 85025; 86703; 86706; 86708; 86803; 87081; 88304; 93005; 96361; 96365; 96366; 96375; 96376; 99218; 99251; C1713; J7120; G0378; G0463

== ENCOUNTER → 2021-09-30 | Outpatient (CLI) | payer OTHER, SELFPAY ==
--- NOTE | 2021-09-30 11:13 | MRI_ITS ---
STUDY: MRI LEFT SHOULDER REASON FOR EXAM: Left shoulder pain and left arm weakness, no specific injury. TECHNIQUE: Standardized fat and water weighted pulse sequences were obtained in all 3 orthogonal planes. COMPARISON: Radiographs 09/15/2021, MRI images 10/09/2017. FINDINGS: There is mild supraspinatus/infraspinatus tendinosis (T2 coronal images 7-12) without discrete tendon tear. Normal subscapularis tendon. Normal teres minor tendon. Normal supraspinatus muscle. Normal infraspinatus muscle. There is a low-grade strain of the subscapularis muscle (proton-density axial images 10, 11). Normal teres minor muscle. Normal glenohumeral articulation. Normal humeral head and visualized proximal humerus. Normal biceps labral complex. Normal intracapsular long biceps tendon. Normal labrum. Normal capsulo- ligamentous complex. There is acromioclavicular arthrosis without substantial undersurface osteophytes (T2 sagittal image 11). There is a Type II morphology (curved), with a neutral orientation. There is a small volume of subacromial-subdeltoid bursal fluid (T2 coronal images 6-12). Normal visualized coracohumeral and coracoacromial ligaments. Normal deltoid muscle. Normal trapezius muscle. MRI/Upper Ext Joint Only(Routine) IMPRESSION: Mild supraspinatus and infraspinatus tendinosis without demonstrated rotator cuff tear. Low-grade strain of the subscapularis muscle. Acromioclavicular arthrosis. Mild subacromial-subdeltoid bursitis. Electronically Signed: Wilfredo Dimas MD at 12:43 EDT ,
== END | disposition home or self-care (01) ==
LOC: MRI 11:13
PROVIDERS: PCP Family Medicine; Referring Provider Nurse Practitioner; Visit Provider Nurse Practitioner
DX: M25.512 Pain in left shoulder (principal); R29.898 Other symptoms and signs involving the musculoskeletal system
CPT/HCPCS: 73221

== ENCOUNTER 2023-05-16 09:30 | Outpatient (RCR) | payer OTHER, SELFPAY ==
--- NOTE | 2023-05-16 10:27 | HP.PTEVAL_ITS ---
Patient's Visit Information Visit Information Visit Information: TATI QUINONEZ is a 42 year old M referred to Physical Therapy by Dr. Brian Lindsay DO with a diagnosis of R calf strain. Date of Evaluation: 05/16/23 Physical Therapist: Avery Block, DPT, OCS, CSCS Visit Plan Frequency: 2-3x /Week Duration: 4-6 Weeks Plan: 2-3x/week for a week and then weaning for up to 4-6 weeks as needed. Start with R gastroc lateral DTR and STM, aggressive stretching gastroc, watch running in clinic and progression, US to gastroc if knots persist. Ensure toe and heel walk warm up prior and stretching after. 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 Pt is working at home on SL heel raises 3x25, ecc heel lower 3x10 then weights...gasrtoc and soleus stretch on wall 30 4x 2x/day with foam roll prior, warm up before ex(now swimming and biking until can run) with heel and toe walks 50 feet 3x. Also can start running when doing full progra, above without pain but emphasize slow build volume over speed and start with 1-2 miles stopping if not tolerated. Subjective Subjective: 3 weeks ago while running a triathlon changing from bike to run. Running some intervals and felt a pull in r calf. had done RICe and some ex ercises(calf raises, plyo, stretching). [place] better and tried running last week, did 10 min w/u OK, 2 min faster and felt tightness and stopped. Has continued swimming and biking and has not had issues. Cannot run. 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 Sleeping is OK. Bikes runs annd swims daily. LBP 2x./ year but not lately. No back core strength, just triathlon. Objective Objective: R lateral gastroc is moderately tender where L is not. Small palpable knot very local. AROM gastroc and soleus is WNL to 6 DF B knee straight and 8 knee bent B. Inv and eversion are WNL and symmetrical. 5/5 strength ev/inv/DF/ PF, able to heel raise without pain today on r and L. Walks normal, steps normal and reciprocal, no pain. Jogs up steps easily. - homans LB AROM WFL and without pain today Balance/Special Test Scores Lower Extremity Functional Score: 53 Goals Goal 1:: run 10 miles without tightening or pain in calf Goal Time Frame: 4-6 Weeks Goal 2:: I appropriate warm up, stretching, strength gastroc and soleus for running Goal Time Frame: 2-4 Weeks Goal 3:: LEFS score 80 Goal Time Frame: 4-6 Weeks Rehabilitation Potential Physical Therapy Diagnosis: Limited training fue to R calf tightness and pain Rehabilitation Potential: Good Anticipated Interventions Patient/Client Instruction: Educate patient on: Condition and Plan of Care For the Purpose of:: To decrease pain, To improve nutrient delivery to tissue, To improve muscle performance and motor function and To increase tolerance to activity/condition/position Therapeutic Exercise to Include: Strength training, Flexibilty training, Gait and locomotor training, Passive ROM and Active ROM Comment: run progression For the Purpose of:: To increase tolerance to activity/condition/position and To improve gait and locomotor functions Manual Therapy Techniques to Include: Trigger point massage, Mobilization and Soft tissue mobilization For the Purpose of:: To improve muscle performance and motor function, To increase tolerance to activity/condition/position, To improve ability of phy sical actions for home/community/work/leisure and To improve gait and locomotor functions Ultrasound (thermal/non thermal): Yes (thermal gastroc R) For the Purpose of:: To decrease pain and To improve nutrient delivery to tissue Text: Thank you for the opportunity to evaluate your patient. For Medicare and Medicare HMO plans, please review the plan of care and approve it. It will need to be FAXED BACK to us at [phone] for Medicare purposes. For Medicare only, by signing this I certify the plan of care. Please let me know if there are questions or concerns regarding this plan of care. Physician Signature: Date:
--- NOTE | 2023-07-30 09:06 | HP.PT.NRP ---
Patient Information Patient Information: TATI QUINONEZ was seen in my office for initial evaluation on 05/16/23. The following Plan of Care was established for this patient: POC Established Initial Frequency: 2-3x /Week Initial Duration: 4-6 Weeks Anticipated Interventions Patient/Client Instruction: Educate patient on: Condition and Plan of Care For the Purpose of:: To decrease pain, To improve nutrient delivery to tissue, To improve muscle performance and motor function and To increase tolerance to activity/condition/position Therapeutic Exercise to Include: Strength training, Flexibilty training, Gait and locomotor training, Passive ROM and Active ROM For the Purpose of:: To increase tolerance to activity/condition/position and To improve gait and locomotor functions Manual Therapy Techniques to Include: Trigger point massage, Mobilization and Soft tissue mobilization For the Purpose of:: To improve muscle performance and motor function, To increase tolerance to activity/condition/position, To improve ability of physical actions for home/community/work/leisure and To improve gait and locomotor functions Ultrasound (thermal/non thermal): Yes (thermal gastroc R) For the Purpose of:: To decrease pain and To improve nutrient delivery to tissue Last Seen Last Seen: This patient was last seen in our office 05/16/23. Pertinent comments regarding their Physical therapy will appear below: Pt seen for IE and pOC established. He did not schedule or return for any visits. at this point, it has been over 2 months and I will discontinue from my care. At this point I will be discontinuing this patient from physical therapy. I would be happy to see this patient again in the future if found appropriate by the physician. Thank you! Avery Block, DPT, OCS, CSCS Balance/Gait/Functional tests Balance/Special Test Scores Lower Extremity Functional Score: 53
== END 2023-05-16 19:00 | disposition home or self-care (01) ==
LOC: PT 09:30
PROVIDERS: PCP Family Medicine; Referring Provider Family Medicine; Visit Provider Family Medicine
DX: S86.911D Strain of unspecified muscle(s) and tendon(s) at lower leg level, right leg, subsequent encounter (principal)
CPT/HCPCS: 97110; 97161

== ENCOUNTER 2024-05-15 14:54 | Outpatient (RCR) | payer OTHER, SELFPAY ==
--- NOTE | 2024-05-15 15:44 | HP.PTEVAL ---
Patient's Visit Information Visit Information Visit Information: TATI QUINONEZ is a 43 year old M referred to Physical Therapy by Dr. Brian Lindsay DO with a diagnosis of dizzyness. Date of Evaluation: 05/15/24 Physical Therapist: Avery Block, DPT, OCS, CSCS Visit Plan Frequency: 1x/Week Duration: 2-4 Weeks Plan: 1-3 follow ups as needed around a vacation to [place] in two days to monitor and treat BPPV as necessary Treated today with L carlota x 2 and taugth BD exercises as well as half somersault maneuver for Home if needed. will call upon return from [place] if still dizzy. Subjective Subjective: with him Vertigo started 6 days ago. Gets episodes over last 4 yrs maybe 2 per year. this time has fallen 2x. Always starts when sleeping. usually turning in bed or playing on ground with dtr. bending can cause it. This time he gets and stays nauseous. Started 6 days ago sitting up in bed. Lasted until he fell on bed, nausea then stays around for a while. [place] early on did not help. Leaving for [place] in 2 days. 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 Was unstady when he fell. Objective Objective: Walks into PT with flat affect but I with good balance, trasnfers I bed and chair. Steeps reciprocal without rail today. Cervical aROM WFL and without pain or hesitancy. UE AROM wFL and good resistance. - R HD + L HD for up torsional nystagmus 15 second duration. Treated with modified carlota then much improved HD but did it again. Balance/Special Test Scores Functional Gait Assessment Score: 30 % Disability: 0 Dizziness Score: 44 Goals Goal 1:: Patient feel 100% back to normal with no dizzyness Goal Time Frame: 4-6 Weeks Goal 2:: roll in bed and sleep without symtpoms Goal Time Frame: 4-6 Weeks Goal 3:: I appropriate management of condition Goal Time Frame: 4-6 Weeks Rehabilitation Potential Physical Therapy Diagnosis: + L post canal BPPV Rehabilitation Potential: Fair Anticipated Interventions Patient/Client Instruction: Educate patient on: Condition and Plan of Care For the Purpose of:: To increase tolerance to activity/condition/position Comment: dizzy For the Purpose of:: To increase tolerance to activity/condition/position Text: Thank you for the opportunity to evaluate your patient. For Medicare and Medicare HMO plans, please review the plan of care and approve it. It will need to be FAXED BACK to us at [phone] for Medicare purposes. For Medicare only, by signing this I certify the plan of care. Please let me know if there are questions or concerns regarding this plan of care. Physician Signature: Date:
--- NOTE | 2024-09-11 15:41 | HP.PT.NRP ---
Patient Information Patient Information: TATI QUINONEZ was seen in my office for initial evaluation on 05/15/24. The following Plan of Care was established for this patient: POC Established Initial Frequency: 1x/Week Initial Duration: 2-4 Weeks Anticipated Interventions Patient/Client Instruction: Educate patient on: Condition and Plan of Care For the Purpose of:: To increase tolerance to activity/condition/position For the Purpose of:: To increase tolerance to activity/condition/position Last Seen Last Seen: This patient was last seen in our office 05/15/24. Pertinent comments regarding their Physical therapy will appear below: Pt seen one visit and POC established and treated with positional treatments. he was to return after a vacation he had planned but did not. At this point, it has been over 3 months and I will discontinue. At this point I will be discontinuing this patient from physical therapy. I would be happy to see this patient again in the future if found appropriate by the physician. Thank you! Avery Block, DPT, OCS, CSCS Balance/Gait/Functional tests Balance/Special Test Scores Functional Gait Assessment Score: 30 % Disability: 0 Dizziness Score: 44
== END 2024-05-15 19:00 | disposition home or self-care (01) ==
LOC: PT 14:54
PROVIDERS: PCP Family Medicine; Referring Provider Family Medicine; Visit Provider Family Medicine
DX: R42 Dizziness and giddiness (principal)
CPT/HCPCS: 97161

== ENCOUNTER → 2024-07-15 | Outpatient (CLI) | payer OTHER, SELFPAY ==
--- NOTE | 2024-07-15 07:58 | CT_ITS ---
PROCEDURE: LIMITED CHEST CT CARDIAC ONLY REASON FOR EXAM: SCREENING TECHNIQUE: Supine chest CT without contrast. One or more dose reduction techniques were used (e.g., Automated exposure control, adjustment of the mA and/or kV according to patient size, use of iterative reconstruction technique). Dose report: CTDI L volume: 12.19 mGy. DLP: 219.42 mGy COMPARISON: None FINDINGS: Hardware: None Lymph nodes: No mediastinal hilar or axillary lymphadenopathy. Heart and Vasculature: Thoracic aorta and pulmonary arteries have normal contours; noncontrast technique limits evaluation. Coronary Artery Calcifications: Absent Lungs and Airways: Minimal linear atelectasis at the right lung base. Pleura: No pleural effusion. Upper Abdomen: Unremarkable Bones: Bone windows are unremarkable. CT/Limited Chest CT Cardiac Only IMPRESSION: Coronary artery calcification (CAC) is is absent Reading Location: [place] [id number]
--- NOTE | 2024-07-21 17:40 | CA.SCORE ---
Calcium Scoring Date of Study:: 07/15/24 Indications Indications: screening Coronary Calcium Scoring: High-resolution Computed Tomographic imaging of the chest was performed on [07/15/24 ], with particular attention paid to the coronary arteries. Images from the examination were analyzed for the presence and extent of coronary artery calcification , using coronary calcium quantification software. The patient tolerated the procedure well and there were no complications. The results of the coronary calcification analysis are provided below. Findings Coronary Artery Left Main (LM): 0 Left Anterior Descending (LAD): 0 Left Circumflex (LCX): 0 Right Coronary Artery (RCA): 0 Total Agatston Score: 0 Percentile Rankin% Calcium Scoring Interpretation: Different methods to categorize the overall amount of coronary plaque. Overall amount CAC SIS Visual of coronary plaque P1 Mild -100 <2 1-2 vessels with mild amount of plaque P2 Moderate 101-300 3-4 1-2 vessels with moderate amount, 3 vessels with mild amount of plaque P3 Severe 301-999 5-7 3 vessels with moderate amount, 1 vessel with severe amount of plaque P4 Extensive >1000 >8 2-3 vessels with severe amount of plaque Conclusion: No atherosclerotic plaquing
== END | disposition home or self-care (01) ==
LOC: CT 07:48
PROVIDERS: PCP Family Medicine; Referring Provider Family Medicine; Visit Provider Family Medicine
DX: Z13.6 Encounter for screening for cardiovascular disorders (principal)
CPT/HCPCS: 75571; 76380

== ENCOUNTER → 2024-07-15 | Outpatient (CLI) | payer OTHER, SELFPAY ==
--- NOTE | 2024-07-15 11:50 | MRI_ITS ---
PROCEDURE: BRAIN W/WO CONTRAST 07/15/2024 REASON FOR EXAM: DIZZINESS AND GIDDINESS TECHNIQUE: Routine brain MRI without and with intravenous contrast. Multiplanar and multisequence images were obtained. CONTRAST: Clariscan VOLUME: 19 mL COMPARISON: None. FINDINGS: The ventricles are normal in size and midline in position. No evidence of acute hemorrhage or infarction. No extra-axial blood or fluid collections. No abnormal intracranial enhancement. The paranasal sinuses and mastoid air cells are clear. MRI/Brain W/WO Contrast IMPRESSION: No acute intracranial abnormality. Reading Location: [place] [address]
== END | disposition home or self-care (01) ==
LOC: MRI 11:00
PROVIDERS: PCP Family Medicine; Referring Provider Family Medicine; Visit Provider Family Medicine
DX: R42 Dizziness and giddiness (principal)
CPT/HCPCS: 70553; A9575